=== PATIENT | female | born 1945 | race Caucasian/White ===

== ENCOUNTER → 2018-04-26 | Outpatient (CLI) | payer OTHER ==
[~2018-04-26] MED LIST: ANTIVERT25 MG PO; DICLOFENAC SODI25 MG PO; FISH OIL 1,001000 M2 PO; FLEXERIL PO; GABAPENTIN 100100 MG PO; LIPITOR 20 MG T20 M1 PO; LISINOPRIL20 MG PO; NOHOMEMEDICATIONS; NORCO 5-325 TA1 EACH PO; PERCOCET 5-3251 EACH PO; ROBAXIN 750 MG750 MG PO; VITAMIN B-12500 MCG PO; VITAMIN D 5050000 I1 PO; VITAMIN E400 UNIT PO; ZANTAC 150MG T150 M1 PO
== END ==
LOC: M.MRI 04-09 11:28 → M.RAD 10:20 → M.MRI 11:30
DX: M75.102 Unspecified rotator cuff tear or rupture of left shoulder, not specified as traumatic (principal); Z12.31 Encounter for screening mammogram for malignant neoplasm of breast; S46.812A Strain of other muscles, fascia and tendons at shoulder and upper arm level, left arm, initial encounter; M19.012 Primary osteoarthritis, left shoulder; M25.412 Effusion, left shoulder; M65.812 Other synovitis and tenosynovitis, left shoulder; R59.9 Enlarged lymph nodes, unspecified; X58.XXXA Exposure to other specified factors, initial encounter; Y93.89 Activity, other specified; Y92.89 Other specified places as the place of occurrence of the external cause; Y99.8 Other external cause status

== ENCOUNTER → 2019-03-06 | Outpatient (CLI) | payer OTHER | LOC: M.MRI 07:55 | DX: S83.231A Complex tear of medial meniscus, current injury, right knee, initial encounter (principal); S83.241A Other tear of medial meniscus, current injury, right knee, initial encounter; M17.11 Unilateral primary osteoarthritis, right knee; M25.461 Effusion, right knee; X58.XXXA Exposure to other specified factors, initial encounter; Y99.8 Other external cause status; Y93.89 Activity, other specified; Y92.89 Other specified places as the place of occurrence of the external cause ==

== ENCOUNTER 2020-03-27 16:29 | Emergency (ER) | payer MEDICARE ==
[~2020-03-27] VITALS: Ht 162.6 cm; Wt 127.0 kg
[2020-03-27] MEDS ORDERED: VOLTAREN GEL 1100 G1 TOP (18:25)
[2020-03-27 18:52] VITALS: BP 129/69
== END 2020-03-27 18:54 | disposition home or self-care (01) ==
LOC: M.ERS 16:29
DX: S83.91XA Sprain of unspecified site of right knee, initial encounter (principal); M19.90 Unspecified osteoarthritis, unspecified site; Z79.899 Other long term (current) drug therapy; Z90.49 Acquired absence of other specified parts of digestive tract; W18.39XA Other fall on same level, initial encounter; Y93.89 Activity, other specified; Y92.89 Other specified places as the place of occurrence of the external cause; Y99.8 Other external cause status

== ENCOUNTER 2020-09-07 18:35 | Inpatient (IN) | payer MEDICARE ==
[~2020-09-07] VITALS: Ht 162.6 cm; Wt 132.4 kg
[~2020-09-07 18:35] MED LIST changes: +VOLTAREN GEL 1100 G1 TOP
[2020-09-07 18:36] VITALS: BP 150/36
[2020-09-07] MEDS ORDERED: NORVASC 2.5 MG2.5 M1 PO (18:47)
[2020-09-07 18:53] LABS: ABSOLUTE BASOPHILS 0.1 thou/uL (0.0-0.2); ABSOLUTE EOSINOPHILS 0.2 thou/uL (0.0-0.7); ABSOLUTE LYMPHOCYTES 1.6 thou/uL (0.8-5.3); ABSOLUTE MONOCYTES 0.5 thou/uL (0.0-1.2); BASOPHILS 1.3 %; EOSINOPHILS 3.2 %; HEMATOCRIT 30.2 % (37.0-47.0); LYMPHOCYTES 30.1 %; MCH 29.4 pg (26.0-34.0); MCHC 33.2 g/dL (28.0-37.0); MCV 88.7 fL (80.0-100.0); MONOCYTES 9.8 %; MPV 9.4 fl. (7.2-11.1); NUCLEATED RBCS 0 /100WBC; PLATELET COUNT* 214 thou/uL (150-400); POLYS 55.6 %; RBC 3.41 mil/uL (4.20-5.00); RDW-CV 15.3 % (10.5-14.5); WBC 5.3 thou/uL (4.0-11.0)
[2020-09-07 19:08] LABS: APTT 23.3 Seconds (25.0-31.3); PROTIME 10.4 Seconds (9.20-11.50)
[2020-09-07 19:14] LABS: CALCIUM 8.1 mg/dL (8.5-10.1); CREATININE 1.5 mg/dL (0.6-1.3); POTASSIUM 3.9 mmol/L (3.5-5.1)
[2020-09-07 19:18] LABS: ALBUMIN 3.1 g/dL (3.4-5.0); CK-MB MASS 1.5 ng/mL (<0.5-3.6); MAGNESIUM 2.2 mg/dL (1.8-2.4); TOTAL BILIRUBIN 0.6 mg/dL (<0.1-1.0); TOTAL PROTEIN 6.9 g/dL (6.4-8.2)
[2020-09-07 22:13] VITALS: BP 140/59
[2020-09-07 22:15] VITALS: BP 109/55
[2020-09-07 23:42] VITALS: BP 148/96
[2020-09-08 04:08] VITALS: BP 152/80
[2020-09-08 05:08] LABS: URINE BILIRUBIN NEGATIVE (Negative); URINE BLOOD NEGATIVE (Negative); URINE CLARITY CLEAR; URINE COLOR YELLOW; URINE GLUCOSE-RANDOM NEGATIVE (Negative); URINE KETONES NEGATIVE (Negative); URINE LEUKOCYTES-REFLEX NEGATIVE (Negative); URINE NITRITE-REFLEX NEGATIVE (Negative); URINE PROTEIN NEGATIVE (Negative); URINE SPECIFIC GRAVITY 1.015 (1.005-1.030); URINE UROBILINOGEN 0.2 E.U./dl (0.2-1.0)
[2020-09-08 07:47] VITALS: BP 143/58
--- NOTE | 2020-09-08 10:21 | EKG ---
[place] [address] ELECTROCARDIOGRAM REPORT Name: HERNANDEZ PICKARD Room: [address] ADM IN ..#: [id number] Admission: 09/07/20 Attend Phys: Peg Hammer, Discharge: Date of : 49 Date of Service: 09/07/20 184 Report #: [id number] THIS REPORT FOR: //name// [facility] ED Test Date: 2020-09-07 Test Time: 18:41:04 Pat Name: HERNANDEZ PICKARD Department: Room: [facility] Gender: F Lead Massage Therapist: IKE : 1945 Requested By: Kari Hadley Order Number: [id number] MD: Asa Brunner Measurements Intervals [place] Rate: 46 P: 70 IA: 188 QRS: 32 QRSD: 93 T: 55 QT: 458 QTc: 401 Interpretive Statements sinus rhythm with mobitz type II second degree AV block Biatrial enlargement Low voltage, precordial leads Artifact in lead(s) II,III,aVR,aVL,aVF Compared to ECG 09/26/2016 18:42:38 second degree av block now noted Electronically Signed On 09-08-2020 10:20:48 CDT by Asa Brunner [email or web address] <ELECTRONICALLY SIGNED> By: Asa Brunner MD, [facility] 09/08/20 1020 40 40 Asa Brunner MD, [facility] /EPI
--- NOTE | 2020-09-08 10:22 | EKG ---
[place] [address] ELECTROCARDIOGRAM REPORT Name: HERNANDEZ PICKARD Room: [address] ADM IN [facility]#: [id number] Admission: 09/07/20 Attend Phys: Peg Hammer, Discharge: Date of : 49 Date of Service: 09/07/202025 Report #: [id number] THIS REPORT FOR: //name// [facility] ED Test Date: 2020-09-07 Test Time: 20:26:58 Pat Name: HERNANDEZ PICKARD Department: Room: [facility] Gender: F Die Trimmer: MS : 1945 Requested By: Greg Alvares Order Number: [id number] MD: Asa Brunner Measurements Intervals [place] Rate: 44 P: 65 AR: 180 QRS: 7 QRSD: 105 T: 41 QT: 468 QTc: 401 Interpretive Statements Predominant 2:1 AV block Low voltage, precordial leads Electronically Signed On 09-08-2020 10:22:04 CDT by Asa Brunner [email or web address] <ELECTRONICALLY SIGNED> By: Asa Brunner MD, [facility] 09/08/20 1022 25 25 Asa Brunner MD, [facility] /EPI
[2020-09-08 12:00] VITALS: BP 127/4
--- NOTE | 2020-09-08 13:14 | CON ---
[address] [address] CONSULTATION Name: HERNANDEZ PICKARD Room: [address] IN M.R.#: [id number] Admission: 09/07/20 Attend Phys: Peg Hammer MD Discharge: Date of : 49 Report #: [id number] THIS REPORT FOR: cc: GERALD - Lashonda family physician/PCP GEARLD - No family physician/PCP Asa Brunner MD [facility] ~ DOC #: [id number] cc: Angely Brunner MD [facility] DATE OF CONSULTATION: 09/08/2020 CARDIOLOGY CONSULTATION HISTORY OF PRESENT ILLNESS: The patient is a 75-year-old single white female whom I was asked to see in the hospital today after she complained of chest heaviness. The patient states she has a long history of hypertension and a heart murmur. She has never had a cardiac evaluation, however. She is not very active because of her large size. She is 5 feet 4 inches and weighs 278 pounds. She notes that she recently saw Angely Arriaza and her blood pressure is elevated. She complained of lightheadedness and dizziness. In addition to lisinopril, she was started on low dose of blood pressure medications. She notes that she continues to have occasional headache and dizziness. Her blood pressure yesterday was low. She called the EMS and was brought here to [facility] and admitted. I was asked to see her for further evaluation and treatment. She notes the chest tightness does not radiate. It is not related to food. She does complain of being short of breath with exertion. She has lower extremity edema. She has had no palpitations or syncope. She denied any fever. PAST MEDICAL HISTORY: She has had previous cholecystectomy. She has a history of hypertension and hyperlipidemia. CURRENT MEDICATIONS: Consists of amlodipine 2.5 mg a day, which she has now been on for 3 weeks, Lipitor 20 mg a day, Neurontin, hydrocodone, lisinopril 40 mg a day, Antivert. ALLERGIES: She has no known drug allergies. FAMILY HISTORY: Her brother had diabetes. Father had COPD. SOCIAL HISTORY: She is , lives by herself here in [place]. No smoking, no alcohol abuse. REVIEW OF SYSTEMS: No history of stroke. She has sleep apnea, [place] [address] CONSULTATION Name: HERNANDEZ PICKARDAINE Room: [address]#: [id number] Admission: 09/07/20 Attend Phys: Peg Hammer MD Discharge: Date of : 49 Report #: [id number] history of liver disease or kidney disease. 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 She has seen an oncologist in the past. No history of cancer. She has arthritis "all over." No chronic skin condition. No psychiatric illness. PHYSICAL EXAMINATION: GENERAL: Revealed a large elderly female, lying in bed. She appeared in no distress. VITAL SIGNS: When she was admitted was 100/50, pulse was 50. She was afebrile. HEENT: She was anicteric. Conjunctivae pink. Mucous membranes are moist. NECK: Veins are difficult to assess due to obesity. No carotid bruits. CHEST: Clear to auscultation. CARDIAC: Regular rate and rhythm. There was a grade III systolic ejection murmur along the left sternal border. ABDOMEN: Obese. EXTREMITIES: No pitting edema. Dorsalis pedis pulse was 1+ bilaterally. SKIN: Cool and dry. NEUROLOGIC: Nonfocal. LYMPHATIC: No adenopathy. MUSCULOSKELETAL: No joint effusion. DIAGNOSTIC DATA: Her ECG on admission showed sinus bradycardia. There are no ST or T-wave change noted. On the monitor last night, the patient was having episodes of 2:1 heart block. It appeared to represent Mobitz type 1 AV block. LABORATORY WORKUP: Her sodium is 143, potassium 3.9, creatinine 1.5, SGOT 58, SGPT 81. Her troponin is 0.06. BNP 934. White blood cell count 5.3, hemoglobin was 10. COVID stat test was negative. Urinalysis is negative for protein. The patient had an echocardiogram performed here at [facility] in 2017 that showed normal left ventricular function, left ventricular hypertrophy. There was evidence of mild aortic stenosis in 2017 with a left ventricular gradient of 26 mmHg. The patient had a chest x-ray in the emergency room last night that showed mild cardiomegaly, mild vascular congestion. Venous duplex scan of the legs showed no DVT. Carotid Doppler study in 2017 showed no significant stenosis. IMPRESSION AND RECOMMENDATIONS: 1. Type 2 second-degree arteriovenous block. Recommend permanent pacemaker. 2. Hypertension. The patient is on an LOLY inhibitor. Developed low blood pressure on calcium merlin. 3. Morbid obesity. 4. Sleep apnea. The patient uses CPAP. 5. Chest heaviness. No evidence of acute myocardial infarction. I would not recommend stress testing at this time. [address] [address] CONSULTATION Name: HERNANDEZ PICKARD Room: [address] IN [facility].#: [id number] Admission: 09/07/20 Attend Phys: Peg Hammer MD Discharge: Date of : 49 Report #: [id number] 6. Hyperlipidemia. The patient is on a statin drug. 7. Degenerative joint disease. 8. History of lymphoma. 9. Elevated liver function studies. 10. Anemia. No history of bleeding. Asa Brunner MD [facility] <ELECTRONICALLY SIGNED> By: Asa Brunner MD, [facility] 09/08/20 1314 0831 [id number] Brunner MD, [facility] /nt
[2020-09-08 16:00] VITALS: BP 128/78
[2020-09-09 00:33] VITALS: BP 124/58
[2020-09-09 03:46] VITALS: BP 136/70
[2020-09-09 03:59] LABS: HEMOGLOBIN 9.6 gm/dL (12.0-15.0)
[2020-09-09 04:14] LABS: CHOLESTEROL 112 mg/dL (<200); HDL CHOLESTEROL 34 mg/dL (>40); LDL CHOLESTEROL 65 mg/dL (<100); TC:HDL 3.3 Ratio (Not establshd); TRIGLYCERIDE 65 mg/dL (<150); VLDL 13 mg/dL (<40)
[2020-09-09 04:19] LABS: SERUM ASSESSMENT CLEAR
[2020-09-09 07:46] VITALS: BP 135/72
[2020-09-09 08:43] LABS: ABSOLUTE EOSINOPHILS 0.1 thou/uL (0.0-0.7); ABSOLUTE LYMPHOCYTES 0.9 thou/uL (0.8-5.3); ABSOLUTE MONOCYTES 0.5 thou/uL (0.0-1.2); ABSOLUTE NEUTROPHILS 3.8 thou/uL (1.6-8.1); BASOPHILS 0.5 %; EOSINOPHILS 2.4 %; HEMATOCRIT 30.8 % (37.0-47.0); HEMOGLOBIN 10.2 gm/dL (12.0-15.0); LYMPHOCYTES 17.3 %; MCH 29.4 pg (26.0-34.0); MCHC 33.1 g/dL (28.0-37.0); MCV 88.7 fL (80.0-100.0); MONOCYTES 8.5 %; MPV 9.2 fl. (7.2-11.1); NUCLEATED RBCS 0 /100WBC; PLATELET COUNT* 211 thou/uL (150-400); POLYS 71.3 %; RBC 3.47 mil/uL (4.20-5.00); RDW-CV 15.3 % (10.5-14.5); WBC 5.4 thou/uL (4.0-11.0)
[2020-09-09 08:54] LABS: CALCIUM 8.3 mg/dL (8.5-10.1); CREATININE 1.3 mg/dL (0.6-1.3); POTASSIUM 4.7 mmol/L (3.5-5.1)
--- NOTE | 2020-09-09 11:06 | EKG ---
[place] [address] ELECTROCARDIOGRAM REPORT Name: MELLYHERNANDEZ TEE Room: [address] ADM IN M.R.#: [id number] Admission: 09/07/20 Attend Phys: Peg Hammer, Discharge: Date of : 49 Date of Service: 09/09/20918 Report #: [id number] THIS REPORT FOR: //name// [facility] Test Date: 2020-09-09 Test Time: 09:19:51 Pat Name: HERNANDEZ PICKARD Department: Room: [address] Gender: F Lombardi Developer: HERNAN : 1945 Requested By: Asa Brunner Order Number: [id number] Reading MD: Asa Brunner Measurements Intervals [place] Rate: 68 P: 58 ND: 245 QRS: -78 QRSD: 144 T: 75 QT: 473 QTc: 504 Interpretive Statements Sinus rhythm Prolonged ND interval Probable left atrial enlargement ventricular paced rhythm Compared to ECG 09/07/2020 20:26:58 ventricular paced beats now noted 2:1 AV block no longer present Electronically Signed On 09-09-2020 11:06:32 CDT by Asa Brunner [email or web address] <ELECTRONICALLY SIGNED> By: Asa Brunner MD, [facility] 09/09/20 1106 8 8 Asa Brunner MD, FAC /EPI
[2020-09-09 11:35] VITALS: BP 135/72
[2020-09-09 11:47] VITALS: BP 143/73
--- NOTE | 2020-09-09 12:42 | CARD ---
[address] [address] CARDIAC CATH REPORT Name: HERNANDEZ PICKARD Room: [address] IN [facility]#: [id number] Admission: 09/07/20 Attend Phys: Peg Hammer MD Discharge: Date of : 49 Report #: [id number] THIS REPORT FOR: cc: FAM - No family physician/PCP FAM - No family physician/PCP Asa Brunner MD [facility] ~ APPROVED REPORT Study performed: 09/08/2020 12:57:11 Patient Status: In-Patient Room #: Event Personnel: Asa Brunner Academic Administrator, Leigh Gutierrez RN, Katarzyna Coon, Jazzy Odell Monitor Exam: Insertion of Dual Chamber Permanent Pacemaker Indications: 2nd Degree Mobitz II The patient is a 75 year-old female with a history of 2nd Degree Mobitz II. Conscious Sedation No sedation given. Case start was 1355 and case end was 1538. Implanted Devices: permanent dual chamber MRI compatible Biotronic pacemaker with atrial and ventricular screw-in leads Procedure The patient underwent informed consent. We discussed the details of the procedure including the risks, which include, but not limited to bleeding, infection, vascular damage, cardiac perforation, and pneumothorax. She understood these risks and was willing to proceed. As such, she was brought to the EP/Cardiac Catheterization laboratory in a fasting and sedated state and prepped and draped in a sterile fashion, received IV antibiotics prior to initiation of the procedure and a venogram was performed showing patency of the left axillary vein. The patient underwent conscious sedation, with no related complications. The patient was brought to the EP/Cardiac Catheterization laboratory and the left chest and shoulder were prepped and draped in a sterile manner. During this case, Fluoroscopy and low osmolar contrast were used for imaging. IV conscious sedation was used [place] [address] CARDIAC CATH REPORT Name: HERNANDEZ PICKARD TEE Room: [address] IN M.R.#: [id number] Admission: 09/07/20 Attend Phys: Peg Hammer MD Discharge: Date of : 49 Report #: [id number] monitoring and was performed in the presence of a registered nurse who was an independent trained observer other than the physician performing the procedure. The left subclavian region was infiltrated with 2% Lidocaine with Epinephrine subcutaneous anesthesia. A transverse incision was made in the left upper chest cavity. The subcutaneous pocket was formed via blunt dissection. Percutaneous venous access was achieved and an introducer sheath was inserted into the left Subclavian vein. Sheaths were positions using the modified Seldinger technique Through the introducer sheaths the atrial and ventricular lead wires were positioned in the right atrial appendage and right ventricular apex respectively. Utilizing fluoroscopic guidance, the atrial and ventricular lead wires were advanced over the wires and positioned in the right atria and right ventricle respectively. Capturing and sensing thresholds were verified. Electrode Parameters P Wave: 4.6 mv R Wave: 10.5 mv Atrial Threshold: 0.8 v @ 0.4 ms Ventricular Threshold: 0.4 v @ o.4 ms Atrial Resistance: 487 ohm Ventricular Resistance: 855 ohm Dual Chamber The atrial and ventricular leads were then secured using 0 silk sutures. The subcutaneous pocket was irrigated with ancef antibiotic solution.The atrial and ventricular leads were attached to the appropriate receptacles on the pulse generator and set screws firmly tightened to insure adequate contact and stability. The lead and pulse generator were placed into the subcutaneous pocket. Sharp and sponge counts were confirmed to be correct. At this time the pocket was closed subcutaneously with a 0 Vicryl and the skin was closed with a 4.0 Vicryl. The operative site was dressed in sterile fashion with skin affix and the patient was transferred to the floor in stable condition. Complications The patient tolerated the procedure well and there were no complications associated with the procedure. Findings Specimens Removed: No Estimated Blood Loss: 5 [place] [address] CARDIAC CATH REPORT Name: HERNANDEZ PICKARD Room: [address] IN M.R.#: [id number] Admission: 09/07/20 Attend Phys: Peg Hammer MD Discharge: Date of : 49 Report #: [id number] Conclusion successful placement of a dual chamber pacemaker and leads <ELECTRONICALLY SIGNED> By: Asa Brunner MD, [facility] 09/09/20 1242 1242 [id number] Brunner MD, FACC /INF
[2020-09-09 15:21] VITALS: BP 135/72
== END 2020-09-09 15:20 | disposition home or self-care (01) | DRG 242 ==
LOC: M.ERS 18:35 → M.TBA-ER 20:20 → M.2W 20:20
PROVIDERS: Family Medicine; Internal Medicine; Internal Medicine Cardiovascular Disease; Personal Emergency Response Attendant; ADMIT Internal Medicine; ATTEND Internal Medicine
DX: I44.1 Atrioventricular block, second degree (principal); I50.31 Acute diastolic (congestive) heart failure; N17.9 Acute kidney failure, unspecified; Z68.43 Body mass index [BMI] 50.0-59.9, adult; E66.01 Morbid (severe) obesity due to excess calories; E78.5 Hyperlipidemia, unspecified; M19.90 Unspecified osteoarthritis, unspecified site; D64.9 Anemia, unspecified; G89.29 Other chronic pain; M54.9 Dorsalgia, unspecified; Z20.822 Contact with and (suspected) exposure to COVID-19; I11.0 Hypertensive heart disease with heart failure; G62.9 Polyneuropathy, unspecified; Z60.2 Problems related to living alone; Z85.72 Personal history of non-Hodgkin lymphomas; G47.33 Obstructive sleep apnea (adult) (pediatric); Z90.49 Acquired absence of other specified parts of digestive tract; Z83.3 Family history of diabetes mellitus; Z83.6 Family history of other diseases of the respiratory system; Z79.899 Other long term (current) drug therapy